=== PATIENT | female | born 1975 | race Caucasian/White ===

== ENCOUNTER 2020-07-26 14:07 | Emergency (ER) | payer MEDICAID, SELFPAY ==
--- NOTE | 2020-07-26 14:27 | PC.NURSE ---
Pt arrived to unit from waiting room, affect anxcious, cooperative w/ changeover. During changeover, several pills were found in purse by Officer Cyril- per pt, medications are xanax and oxycodone. Pt aware that per security, medicatioons must be destroyed as they did not arrive in precription bottle or with any other formal identifier. Pt aware, no concerns verbalized.
[2020-07-26 14:31] VITALS: BP 159/89; PULSE 86; RESP 18; TEMP 36.9; O2SAT 97
[2020-07-26 14:45] VITALS: BMI 44.2
[2020-07-26 14:59] LABS: UPreg QC Valid YES; Urine Pregnancy NEGATIVE (NEGATIVE)
--- NOTE | 2020-07-26 15:15 | ED_ITS ---
HPI - Psych General Chief Complaint: Psychiatric Symptoms <PHAM Foreman Last Filed: 07/26/20 21:08> Stated Complaint: CRISIS <PHAM Foreman Last Filed: 07/26/20 21:08> Time Seen by Provider: 07/26/20 18:07 <PHAM Foreman Last Filed: 07/26/20 21:08> Source: patient <PHAM Foreman Last Filed: 07/26/20 21:08> Mode of arrival: ambulatory <PHAM Foreman Last Filed: 07/26/20 21:08> Limitations: no limitations <PHAM Foreman Last Filed: 07/26/20 21:08> History of Present Illness HPI Narrative: Patient presents to the ED for depression anxiety. Patient states he feels overwhelmed at home and does not have support. Patient states she is a single mother with autistic child. Patient also states she recently lost her car and cannot afford money to buy new 1. patient denies any suicidal homicidal ideation. <PHAM Foreman Last Filed: 07/26/20 21:08> Related Data Home Medications: Home Medications Medication Instructions Recorded Confirmed alprazolam 2 mg PO DAILY PRN 07/26/20 07/26/20 cyclobenzaprine 10 mg PO TID PRN 07/26/20 07/26/20 fluticasone propion-salmeterol 1 inh INHALATION BID 07/26/20 07/26/20 [Wixela Inhub] hydrochlorothiazide 25 mg PO DAILY 07/26/20 07/26/20 montelukast 10 mg PO DAILY 07/26/20 07/26/20 norethindrone (contraceptive) 0.35 mg PO DAILY 07/26/20 07/26/20 omeprazole 20 mg PO BID 07/26/20 07/26/20 oxycodone 5 mg PO Q4H PRN 07/26/20 07/26/20 sumatriptan succinate 50 mg PO DAILY PRN 07/26/20 07/26/20 vortioxetine [Trintellix] 20 mg PO DAILY 07/26/20 07/26/20 <PHAM Foreman Last Filed: 07/26/20 21:08> Allergies/Adverse Reactions: Allergies Allergy/AdvReac Type Severity Reaction Status Date / Time amoxicillin [AMOXICILLIN] Allergy Mild RASH Unverified 06/09/20 16:22 latex [LATEX] Allergy Mild RASH Unverified 06/09/20 16:22 Penicillins [PENICILLINS] Allergy Mild RASH Unverified 06/09/20 16:22 amox Allergy Unknown SOB/rash Uncoded 05/20/12 00:00 LATEX Allergy Unknown rash Uncoded 05/20/12 00:00 PCN Allergy Unknown SOB/rash Uncoded 05/20/12 00:00 <PHAM Foreman - Last Filed: 07/26/20 21:08> Review of Systems Review of Systems: Yes all other systems are reviewed and are negative <PHAM Foreman Last Filed: 07/26/20 21:08> Constitutional: Constitutional: Reports as per HPI and Reports no additional constitutional complaints <PHAM Foreman Last Filed: 07/26/20 21:08> Eyes: Eyes: Reports as per HPI and Reports no additional eye complaints <PHAM Foreman Last Filed: 07/26/20 21:08> ENT: Reports system reviewed and no additional complaints, except as documented and Reports as per HPI <PHAM Foreman Last Filed: 07/26/20 21:08> Cardiovascular: Cardiovascular: Reports as per HPI and Reports no additional cardiovascular complaints <PHAM Foreman Last Filed: 07/26/20 21:08> Respiratory: Respiratory: Reports as per HPI and Reports no additional respiratory complaints <PHAM Foreman Last Filed: 07/26/20 21:08> Gastrointestinal: Gastrointestinal: Reports as per HPI and Reports no additional gastrointestinal complaints <PHAM Foreman Last Filed: 07/26/20 21:08> Musculoskeletal: Musculoskeletal: Reports no additional musculoskeletal complaints and Reports as per HPI <PHAM Foreman Last Filed: 07/26/20 21:08> Neurologic: Reports system reviewed and no additional complaints, except as documented and Reports as per HPI <PHAM Foreman Last Filed: 07/26/20 21:08> Psychiatric: Psychiatric: Reports no additional psychiatric complaints, Reports as per HPI, Reports anxiety and Reports depression <PHAM Foreman Last Filed: 07/26/20 21:08> FORMERLY [facility], [facility] Past Medical History Medical History: Medical History (Updated 07/26/20 @ 19:14 by Jasiel Adames MD) Asthma Colitis Crohn disease Fibromyalgia HTN (hypertension) <PHAM Foreman - Last Filed: 07/26/20 21:08> Surgical History: Surgical History (Updated 07/26/20 @ 14:52 by Vicki Mccloud) History of cholecystectomy LAP-BAND surgery status Previous section <PHAM Foreman - Last Filed: 07/26/20 21:08> Social History Social History: Social History Smoking Status: Never smoker Use of substances other than those prescribed or required for medical reasons: No Advance Directives: No Advance Directives Information Provided: No <PHAM Foreman Last Filed: 07/26/20 21:08> Physical Exam Vital Signs: Vital Signs: Vital Signs Temp Pulse Resp BP Pulse Ox 07/26/20 14:31 98.4 F 86 18 159/89 H 97 Body Mass Index 44.2 <PHAM Foreman - Last Filed: 07/26/20 21:08> Vital Signs: Vital Signs Temp Pulse Resp BP Pulse Ox 07/26/20 14:31 98.4 F 86 18 159/89 H 97 Body Mass Index 44.2 <Jasiel Adames MD - Last Filed: 07/26/20 19:15> Const: General: cooperative, healthy appearing, comfortable, no acute distress, well developed, alert and awake <PHAM Foreman Last Filed: 07/26/20 21:08> Orientation/consciousness: oriented to person, oriented to place, oriented to t herminia and patient oriented x3 <PHAM Foreman Last Filed: 07/26/20 21:08> HENMT: Head: Yes normal to inspection and Yes No palpable skull fracture present <PHAM Foreman Last Filed: 07/26/20 21:08> Eyes: General: appearance normal, both eyes and all related structures <PHAM Foreman Last Filed: 07/26/20 21:08> Neck: Neck: Yes normal visual inspection and Yes full ROM <PHAM Foreman Last Filed: 07/26/20 21:08> Chest: Chest palpation & inspection: normal inspection of the chest, normal palpation of entire chest wall and no localized rib tenderness <Cruzito Kirk, PA Filed: 07/26/20 21:08> Resp: Effort & Inspection: normal respiratory effort and able to speak in complete sentences <Cruzito Kirk, PA Filed: 07/26/20 21:08> Cardio: Jugular venous distension: no JVD <Cruzito Kirk, PA Filed: 07/26/20 21:08> Heart sounds: S1 normal heart sound present and S2 normal heart sound present <Cruzito Kirk, PA Filed: 07/26/20 21:08> GI: Inspection: Yes normal to inspection and No abdominal wall ecchymosis <Cruzito Kirk, PA Filed: 07/26/20 21:08> Palpation (GI): Soft to palpation, not firm, nontender, no guarding and not rigid <Cruzito Kirk, PA Filed: 07/26/20 21:08> : General: No CVA tenderness and Yes no CVA tenderness <Cruzito Kirk, PA Filed: 07/26/20 21:08> Back/Spine/Pelvis: Back: no CVA tenderness, No CVA tenderness and No back tenderness <Cruzito Kirk, PA Filed: 07/26/20 21:08> Skin: General skin exam: no rashes or lesions noted <Cruzito Kirk, PHAM Filed: 07/26/20 21:08> Neuro: General: oriented to person, oriented to place, oriented to time, patient oriented x3, gait normal and CN's II-XI intact bilaterally <Cruzito Kirk, PA Filed: 07/26/20 21:08> Cranial nerves: Yes CN's II-XII intact bilaterally <Cruzito Kirk, PA Filed: 07/26/20 21:08> Extrem: General: Yes normal to inspection and Yes full ROM <PHAM Foreman Filed: 07/26/20 21:08> Psych: Appearance: grossly normal, well kempt and not disheveled <PHAM Foreman Last Filed: 07/26/20 21:08> Speech and movement: Normal speech and movement present <PHAM Foreman - Last Filed: 07/26/20 21:08> Affect: normal affect <PHAM Foreman - Last Filed: 07/26/20 21:08> Thought process: Normal thought process present <PHAM Foreman Last Filed: 07/26/20 21:08> Thought content: Normal thought content present <PHAM Foreman - Last Filed: 07/26/20 21:08> Course Course Course Narrative: Patient is depressed and anxious. Patient denies any suicidal or homicide ideation will put. BHN in consult <PHAM Foreman - Last Filed: 07/26/20 21:08> Reevaluation(s) Reevaluation #1: patient seen by therapist will be discharging patient home patient has support at home and at this time patient feels better was overwhelmed when she came <Jasiel Adames MD - Last Filed: 07/26/20 19:15> Time: 19:15 <Jasiel Adames MD - Last Filed: 07/26/20 19:15> MDM - Psych Restraints Face to Face Assessment: Face to Face Assessment: Current Situation: After assessment of the patient, a review of the pertinent medical record and a discussion with nursing staff, I feel the patient requires a restrain i ntervention. Reaction To: [] Medical Condition: [] Behavioral State: [] Continued Need: [] <PHAM Foreman - Last Filed: 07/26/20 21:08> Lab Data Result diagrams: : 07/26/20 15:58 07/26/20 15:58 <PHAM Foreman - Last Filed: 07/26/20 21:08> Labs: Lab Results 07/26/20 07/26/20 07/26/20 Range/Units 14:35 14:35 15:58 WBC 10.2 (4.8-10.8) X10*3/uL RBC 4.78 (4.20-5.50) X10*6/uL Hgb 10.6 L (12.0-16.0) g/dl Hct 34.9 L (37-47) % MCV 73.0 L (80-98) fL MCH 22.2 L (27.0-33.0) pg MCHC 30.4 L (31.0-35.0) g/dl RDW 14.8 (11.0-16.0) % Plt Count 440 H (160-400) X10*3/uL MPV 10.1 (9.4-12.3) fL Immature Gran % (Auto) 0.5 H (0.0-0.4) % Neut % (Auto) 55.3 (45-73) % Lymph % (Auto) 33.3 (20-40) % [place] % (Auto) 7.8 (2-11) % Eos % (Auto) 2.6 (0-4) % Baso % (Auto) 0.5 (0-2) % Lymph # (Auto) 3.4 (1.2-4.9) X10*3/uL [place] # (Auto) 0.8 (0.1-1.2) X10*3/uL Eos # (Auto) 0.3 (0.0-0.4) X10*3/uL Baso # (Auto) 0.1 (0.0-0.2) X10*3/uL Abs Immat Gran (auto) 0.05 H (0.00-0.03) X10*3/uL Absolute Neuts (auto) 5.7 (2.0-8.3) X10*3/uL Absolute Nucleated RBC 0.000 (0.0-0.012) X10*3/uL Nucleated RBC % (auto) 0.0 (0.0-0.2) /100WBC Sodium (135-145) mmol/L Potassium (3.3-5.1) mmol/l Chloride (96-108) mmol/L Carbon Dioxide (22-29) mmol/L Anion Gap (12-20) Urine Test NEGATIVE (NEGATIVE) Salicylates (15-30) mg/dL Urine Opiates Screen POSITIVE H (Not Detect) Acetaminophen (<30) mcg/mL Ur Barbiturates Screen Not Detected (Not Detect) Ur Phencyclidine Scrn Not Detected (Not Detect) Ur Amphetamines Screen Not Detected (Not Detect) U Benzodiazepines Scrn POSITIVE H (Not Detect) Urine Cocaine Screen Not Detected (Not Detect) U Marijuana (THC) Screen Not Detected (Not Detect) Ethyl Alcohol mg/dL 07/26/20 07/26/20 Range/Units 15:58 15:58 WBC (4.8-10.8) X10*3/uL RBC (4.20-5.50) X10*6/uL Hgb (12.0-16.0) g/dl Hct (37-47) % MCV (80-98) fL MCH (27.0-33.0) pg MCHC (31.0-35.0) g/dl RDW (11.0-16.0) % Plt Count (160-400) X10*3/uL MPV (9.4-12.3) fL Immature Gran % (Auto) (0.0-0.4) % Neut % (Auto) (45-73) % Lymph % (Auto) (20-40) % [place] % (Auto) (2-11) % Eos % (Auto) (0-4) % Baso % (Auto) (0-2) % Lymph # (Auto) (1.2-4.9) X10*3/uL [place] # (Auto) (0.1-1.2) X10*3/uL Eos # (Auto) (0.0-0.4) X10*3/uL Baso # (Auto) (0.0-0.2) X10*3/uL Abs Immat Gran (auto) (0.00-0.03) X10*3/uL Absolute Neuts (auto) (2.0-8.3) X10*3/uL Absolute Nucleated RBC (0.0-0.012) X10*3/uL Nucleated RBC % (auto) (0.0-0.2) /100WBC Sodium 140 (135-145) mmol/L Potassium 3.3 (3.3-5.1) mmol/l Chloride 100 (96-108) mmol/L Carbon Dioxide 32 H (22-29) mmol/L Anion Gap 11 L (12-20) Urine Test (NEGATIVE) Salicylates < 5.0 L (15-30) mg/dL Urine Opiates Screen (Not Detect) Acetaminophen 4 (<30) mcg/mL Ur Barbiturates Screen (Not Detect) Ur Phencyclidine Scrn (Not Detect) Ur Amphetamines Screen (Not Detect) U Benzodiazepines Scrn (Not Detect) Urine Cocaine Screen (Not Detect) U Marijuana (THC) Screen (Not Detect) Ethyl Alcohol < 10 mg/dL <PHAM Foreman - Last Filed: 07/26/20 21:08> Lab Results 07/26/20 07/26/20 07/26/20 Range/Units 14:35 14:35 15:58 WBC 10.2 (4.8-10.8) X10*3/uL RBC 4.78 (4.20-5.50) X10*6/uL Hgb 10.6 L (12.0-16.0) g/dl Hct 34.9 L (37-47) % MCV 73.0 L (80-98) fL MCH 22.2 L (27.0-33.0) pg MCHC 30.4 L (31.0-35.0) g/dl RDW 14.8 (11.0-16.0) % Plt Count 440 H (160-400) X10*3/uL MPV 10.1 (9.4-12.3) fL Immature Gran % (Auto) 0.5 H (0.0-0.4) % Neut % (Auto) 55.3 (45-73) % Lymph % (Auto) 33.3 (20-40) % [place] % (Auto) 7.8 (2-11) % Eos % (Auto) 2.6 (0-4) % Baso % (Auto) 0.5 (0-2) % Lymph # (Auto) 3.4 (1.2-4.9) X10*3/uL [place] # (Auto) 0.8 (0.1-1.2) X10*3/uL Eos # (Auto) 0.3 (0.0-0.4) X10*3/uL Baso # (Auto) 0.1 (0.0-0.2) X10*3/uL Abs Immat Gran (auto) 0.05 H (0.00-0.03) X10*3/uL Absolute Neuts (auto) 5.7 (2.0-8.3) X10*3/uL Absolute Nucleated RBC 0.000 (0.0-0.012) X10*3/uL Nucleated RBC % (auto) 0.0 (0.0-0.2) /100WBC Sodium (135-145) mmol/L Potassium (3.3-5.1) mmol/l Chloride (96-108) mmol/L Carbon Dioxide (22-29) mmol/L Anion Gap (12-20) Urine Test NEGATIVE (NEGATIVE) Salicylates (15-30) mg/dL Urine Opiates Screen POSITIVE H (Not Detect) Acetaminophen (<30) mcg/mL Ur Barbiturates Screen Not Detected (Not Detect) Ur Phencyclidine Scrn Not Detected (Not Detect) Ur Amphetamines Screen Not Detected (Not Detect) U Benzodiazepines Scrn POSITIVE H (Not Detect) Urine Cocaine Screen Not Detected (Not Detect) U Marijuana (THC) Screen Not Detected (Not Detect) Ethyl Alcohol mg/dL 07/26/20 07/26/20 Range/Units 15:58 15:58 WBC (4.8-10.8) X10*3/uL RBC (4.20-5.50) X10*6/uL Hgb (12.0-16.0) g/dl Hct (37-47) % MCV (80-98) fL MCH (27.0-33.0) pg MCHC (31.0-35.0) g/dl RDW (11.0-16.0) % Plt Count (160-400) X10*3/uL MPV (9.4-12.3) fL Immature Gran % (Auto) (0.0-0.4) % Neut % (Auto) (45-73) % Lymph % (Auto) (20-40) % [place] % (Auto) (2-11) % Eos % (Auto) (0-4) % Baso % (Auto) (0-2) % Lymph # (Auto) (1.2-4.9) X10*3/uL [place] # (Auto) (0.1-1.2) X10*3/uL Eos # (Auto) (0.0-0.4) X10*3/uL Baso # (Auto) (0.0-0.2) X10*3/uL Abs Immat Gran (auto) (0.00-0.03) X10*3/uL Absolute Neuts (auto) (2.0-8.3) X10*3/uL Absolute Nucleated RBC (0.0-0.012) X10*3/uL Nucleated RBC % (auto) (0.0-0.2) /100WBC Sodium 140 (135-145) mmol/L Potassium 3.3 (3.3-5.1) mmol/l Chloride 100 (96-108) mmol/L Carbon Dioxide 32 H (22-29) mmol/L Anion Gap 11 L (12-20) Urine Test (NEGATIVE) Salicylates < 5.0 L (15-30) mg/dL Urine Opiates Screen (Not Detect) Acetaminophen 4 (<30) mcg/mL Ur Barbiturates Screen (Not Detect) Ur Phencyclidine Scrn (Not Detect) Ur Amphetamines Screen (Not Detect) U Benzodiazepines Scrn (Not Detect) Urine Cocaine Screen (Not Detect) U Marijuana (THC) Screen (Not Detect) Ethyl Alcohol < 10 mg/dL <Jasiel Adames MD - Last Filed: 07/26/20 19:15> Discharge Plan Discharge Clinical Impression: Depression <PHAM Foreman - Last Filed: 07/26/20 21:08> Patient Disposition: Home, Self-Care <PHAM Foreman - Last Filed: 07/26/20 21:08> Instructions: Depression (ED) <PHAM Foreman - Last Filed: 07/26/20 21:08> Additional Instructions: continue your medication and follow up with your therapist <PHAM Foreman - Last Filed: 07/26/20 21:08> Prescriptions: No Action cyclobenzaprine 10 mg Tablet 10 mg PO TID PRN (Reason: Pain, Moderate) RF: 0 oxycodone 5 mg Capsule 5 mg PO Q4H PRN (Reason: Pain, Severe) RF: 0 montelukast 10 mg Tablet 10 mg PO DAILY RF: 0 alprazolam 2 mg Tablet 2 mg PO DAILY PRN (Reason: Anxiety) RF: 0 Trintellix 20 mg Tablet 20 mg PO DAILY RF: 0 fluticasone propion-salmeterol [Wixela Inhub] 250-50 mcg/dose Blister With Device 1 inh INHALATION BID RF: 0 sumatriptan succinate 50 mg Tablet 50 mg PO DAILY PRN (Reason: Migraine Headache) RF: 0 omeprazole 20 mg Capsule,Delayed Release(Dr/Ec) 20 mg PO BID RF: 0 hydrochlorothiazide 25 mg Tablet 25 mg PO DAILY RF: 0 norethindrone (contraceptive) 0.35 mg Tablet 0.35 mg PO DAILY RF: 0 <PHAM Foreman - Last Filed: 07/26/20 21:08> Interventions: ED Discharge Assessment Last Done: 07/26/20 19:14 <PHAM Foreman - Last Filed: 07/26/20 21:08> Discharge Date/Time: 07/26/20 19:37 <PHAM Foreman - Last Filed: 07/26/20 21:08>
[2020-07-26 15:29] LABS: Amphetamine Screen Urine Not Detected (Not Detect); Barbiturates, Urine Not Detected (Not Detect); Benzodiazepines Screen Urine POSITIVE (Not Detect); Cannabinoid Screen Urine Not Detected (Not Detect); Cocaine Screen Urine Not Detected (Not Detect); Opiate Screen Urine POSITIVE (Not Detect); Phencyclidine Screen Urine Not Detected (Not Detect)
[2020-07-26 16:07] LABS: MANUAL DIFF FLAG NO
[2020-07-26 16:08] LABS: Basophils Absolute Auto 0.1 X10*3/uL (0.0-0.2); Basophils Percent Auto 0.5 % (0-2); Eosinophils Absolute Auto 0.3 X10*3/uL (0.0-0.4); Eosinophils Percent Auto 2.6 % (0-4); Hematocrit 34.9 % (37-47); Hemoglobin 10.6 g/dl (12.0-16.0); Imm Gran Abs Auto 0.05 X10*3/uL (0.00-0.03); Imm Gran Pct Auto 0.5 % (0.0-0.4); Lymphocytes Absolute Auto 3.4 X10*3/uL (1.2-4.9); Lymphocytes Percent Auto 33.3 % (20-40); Mean Corpuscular HGB Conc 30.4 g/dl (31.0-35.0); Mean Corpuscular Hemoglobin 22.2 pg (27.0-33.0); Mean Platelet Volume 10.1 fL (9.4-12.3); Monocytes Absolute Auto 0.8 X10*3/uL (0.1-1.2); Monocytes Percent Auto 7.8 % (2-11); Neutrophils Absolute Auto 5.7 X10*3/uL (2.0-8.3); Neutrophils Percent Auto 55.3 % (45-73); Platelet Count 440 X10*3/uL (160-400); Red Blood Count 4.78 X10*6/uL (4.20-5.50); Red Cell Distribution Width 14.8 % (11.0-16.0); White Blood Count 10.2 X10*3/uL (4.8-10.8)
[2020-07-26 16:35] LABS: Ethanol < 10 mg/dL
[2020-07-26 16:38] LABS: Acetaminophen LAB 4 mcg/mL (<30); Salicylate < 5.0 mg/dL (15-30)
--- NOTE | 2020-07-26 16:47 | PC.NURSE ---
tyreln called and faxed
[2020-07-26 16:49] LABS: Anion Gap 11 (12-20); Carbon Dioxide 32 mmol/L (22-29); Chloride 100 mmol/L (96-108); Potassium 3.3 mmol/l (3.3-5.1); Sodium 140 mmol/L (135-145)
--- NOTE | 2020-07-26 18:38 | PC.NURSE ---
BHN in to evaluate. Pt requesting medication for anxiety n april aware- pharmacy called re: xanax , not available in the ED.
[2020-07-26] MEDS: ALPRAZolam 0.25 MG TABLET PO (19:10)
== END 2020-07-26 19:37 | disposition home or self-care (01) ==
PROVIDERS: Emergency Provider Internal Medicine; PCP Nurse Practitioner Adult Health
DX: F33.1 Major depressive disorder, recurrent, moderate (principal); I10 Essential (primary) hypertension; Z79.899 Other long term (current) drug therapy
CPT/HCPCS: 36415; 80051; 80307; 80320; 81025; 85025; 99284; G0480

== ENCOUNTER 2020-09-28 08:00 | Outpatient (RCR) | payer OTHER, SELFPAY ==
[2020-08-12 13:07] VITALS: BMI 40.3
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
--- NOTE | 2020-08-16 15:37 | P.PNPSP_ITS ---
Subjective Subjective Date of Service: 08/17/20 Reason For Visit: depression Interim History: I have just started to take it all in. Pt reports she is adjusting to telehealth and to PHP. Denies medication questions, SE, breakthrough s or need for changes today. Discussed coping with the holiday and having her son at home for five days without added assistance and how she will manage this. Discussed difficulties with telehealth process for herself and her son- attempting to connect with his therapist, mentor, educational providers and med provider to discuss consistent interventions she may implement at home to assist in keeping him moving forward and on track with effective treatment/educational planning. Medication Compliance: Yes Side effects from medications: No Attending Groups: Yes Review of Systems Psychiatric: Reports anxiety, Reports depression, Reports difficulty concentrating, Reports hopelessness and Reports irritability (at times,mostly when exhausted and not having support) Mental Status Exam Mental Status Exam Patient Orientation: Person, Place, Time and Situation Level of Consciousness: Awake, Appropriate and Alert Patient Behavior: Appropriate, Talkative, Cooperative and Anxious Mood Description: Depressed and Anxious Affect Description: Flat Patient Cognition Impaired: No Ability to Follow Directions: Excellent Speech Pattern: Clear, Appropriate, Spontaneous Speech and Soft-Spoken Memory Description: Intact Hallucinations: None Delusions: Not Present Thought Process: Intact and Rumination (at times, with worry) Thought Content: positive for Intact, positive for [place], positive for Circumstantial and positive for Goal Oriented Depressive Symptoms: Increased Anxiety, Diff. Making Decisions, Increased Irri tability, Loss of Int. in Activity, Hopelessness, Unhappiness, Increased Fatigue, Low Self Esteem and Loss of Energy Judgement: Good Diagnostics Vital Signs (24Hr): Body Mass Index 40.3 Assessment & Plan Assessment & Plan (1) Major depressive disorder, recurrent severe without psychotic features: Status: Acute Code(s): F33.2 - Major depressive disorder, recurrent severe without psychotic features Assessment and Plan: -Continue current regime -Continue PHP Plan of care -Education regarding maximum utilization of telehealth process for her and son's benefit during pandemic emergency. Certification I certify that partial hospital treatment is medically necessary due to the symptoms and problems resulting from the patient's mental illness and the failure to treat the patient at the partial hospital level of care would likely result in the patient requiring inpatient psychiatric care which could not be prevented at a less intensive level of care. Greater than 50% of the session was spent on counseling and/or coordination of care Discharge Plan Discharge Attending provider: Richard Lugo Medications: No Action cyclobenzaprine 10 mg Tablet 10 mg PO TID PRN (Reason: Muscle Spasm) RF: 0 oxycodone 5 mg Capsule 5 mg PO Q4H PRN (Reason: Pain, Severe) RF: 0 montelukast 10 mg Tablet 10 mg PO DAILY RF: 0 alprazolam 2 mg Tablet See Rx Instructions .ROUTE .COMPLEX PRN (Reason: Anxiety) RF: 0 fluticasone propion-salmeterol [Wixela Inhub] 250-50 mcg/dose Blister With Device 1 inh INHALATION BID RF: 0 sumatriptan succinate 50 mg Tablet 50 mg PO DAILY PRN (Reason: Migraine Headache) RF: 0 omeprazole 20 mg Capsule,Delayed Release(Dr/Ec) 20 mg PO BID RF: 0 hydrochlorothiazide 25 mg Tablet 25 mg PO DAILY RF: 0 norethindrone (contraceptive) 0.35 mg Tablet 0.35 mg PO DAILY RF: 0 fexofenadine [Vielka] 180 mg Tablet 180 mg PO DAILY RF: 0 pantoprazole 40 mg Tablet,Delayed Release (Dr/Ec) 40 mg PO BID RF: 0 buspirone [BuSpar] 10 mg Tablet 10 mg PO BID RF: 0 hydroxyzine HCl 25 mg Tablet 25 mg PO BID PRN (Reason: Anxiety) RF: 0 dextroamphetamine-amphetamine [Adderall XR] 25 mg Capsule,Extended Release 24hr 25 mg PO DAILY RF: 0 fluconazole [Diflucan] 150 mg Tablet 150 mg PO QWEEK RF: 0
--- NOTE | 2020-08-23 15:47 | HO.PHPPROGNO ---
Subjective Subjective Date of Service: 08/24/20 Reason For Visit: depression Interim History: Destiny reports a diffiuclt holiday. Her brother and his family have COVID, so the family was not able to be together-she and mother had conflict. She tried to make things normal pleasant however she argued with her mother which upset her. She did engage crisis and felt unsupported as they asked her about using medicine for her mood. Mother spoke with crisis as well. Pt was disappointed that more support was not offered. Pt reports insomnia. She called her OP med provider who referred her back to PHP. Discussed with pt why we prefer this to using a few providers while in PHP. Hx of Trazodone use which was ineffective. Discussed low dose Seroquel, risks and benefits Medication Compliance: Yes Side effects from medications: No Attending Groups: Yes Review of Systems Psychiatric: Reports abnormal sleep pattern, Reports anxiety, Reports depression, Reports irritability, Reports anhedonia, Reports mood swings and Reports panic attacks Mental Status Exam Mental Status Exam Patient Orientation: Person, Place, Time and Situation Level of Consciousness: Awake, Appropriate and Alert Patient Behavior: Appropriate, Talkative, Cooperative, Anxious and Fatigued Mood Description: Depressed Affect Description: Flat Patient Cognition Impaired: No Ability to Follow Directions: Good Speech Pattern: Clear, Appropriate and Spontaneous Speech Memory Description: Intact Hallucinations: None Delusions: Not Present Thought Process: Intact Thought Content: positive for Intact and positive for Circumstantial Depressive Symptoms: Increased Anxiety, Insomnia, Diff. Making Decisions, Increased Irritability, Difficulty Sleeping, Crying Spells, Loss of Int. in Activity, Feelings of Worthlessness, Hopelessness, Isolating-Friends/Family, Feelings of Guilt, Unhappiness, Increased Fatigue, Thoughts of /Suicide (passive, without plan or intent today), Low Self Esteem, Loss of Energy and Difficulty Concentrating Judgement: Good Diagnostics Vital Signs (24Hr): Body Mass Index 40.3 Assessment & Plan Assessment & Plan (1) Major depressive disorder, recurrent severe without psychotic features: Status: Acute Code(s): F33.2 - Major depressive disorder, recurrent severe without psychotic features Assessment and Plan: - Insomnia, hx of Trazodone inefficacy. Plan: Seroquel 25-50 mg HS prn insomnia -Continue PHP plan of care. Certification I certify that partial hospital treatment is medically necessary due to the symptoms and problems resulting from the patient's mental illness and the failure to treat the patient at the partial hospital level of care would likely result in the patient requiring inpatient psychiatric care which could not be prevented at a less intensive level of care. Greater than 50% of the session was spent on counseling and/or coordination of care Discharge Plan Discharge Attending provider: Richard Lugo Medications: New quetiapine [Seroquel] 25 mg tablet 50 mg PO BEDTIME MDD take 1-2 tabs at bedtime prn PRN (Reason: insomnia) Qty: 14 RF: 0 No Action cyclobenzaprine 10 mg Tablet 10 mg PO TID PRN (Reason: Muscle Spasm) RF: 0 oxycodone 5 mg Capsule 5 mg PO Q4H PRN (Reason: Pain, Severe) RF: 0 montelukast 10 mg Tablet 10 mg PO DAILY RF: 0 alprazolam 2 mg Tablet See Rx Instructions .ROUTE .COMPLEX PRN (Reason: Anxiety) RF: 0 fluticasone propion-salmeterol [Wixela Inhub] 250-50 mcg/dose Blister With Device 1 inh INHALATION BID RF: 0 sumatriptan succinate 50 mg Tablet 50 mg PO DAILY PRN (Reason: Migraine Headache) RF: 0 omeprazole 20 mg Capsule,Delayed Release(Dr/Ec) 20 mg PO BID RF: 0 hydrochlorothiazide 25 mg Tablet 25 mg PO DAILY RF: 0 norethindrone (contraceptive) 0.35 mg Tablet 0.35 mg PO DAILY RF: 0 fexofenadine [Vielka] 180 mg Tablet 180 mg PO DAILY RF: 0 pantoprazole 40 mg Tablet,Delayed Release (Dr/Ec) 40 mg PO BID RF: 0 buspirone [BuSpar] 10 mg Tablet 10 mg PO BID RF: 0 hydroxyzine HCl 25 mg Tablet 25 mg PO BID PRN (Reason: Anxiety) RF: 0 dextroamphetamine-amphetamine [Adderall XR] 25 mg Capsule,Extended Release 24hr 25 mg PO DAILY RF: 0 fluconazole [Diflucan] 150 mg Tablet 150 mg PO QWEEK RF: 0
--- NOTE | 2020-08-30 12:07 | HO.PHPPROGNO ---
Subjective Subjective Date of Service: 08/30/20 Reason For Visit: depression Interim History: Reports Seroquel efficacy in sleep assist. Has needed two tablets 1 or 2 times, however 1 tab is effective she reports. Talked with Luci HAYWOOD. She states she is interested and will follow through on this referral. Discussed distress of having to manage new disability coverage through employer. She has been making telephone calls all day to no avail. How can I get better if I have to deal with this all of the time? However, she does report improved sleep quality which she finds helpful in managing mood/situational stress. Medication Compliance: Yes Side effects from medications: No Attending Groups: Yes Review of Systems Reports confusion Psychiatric: Reports anxiety, Reports confusion, Reports depression, Reports difficulty concentrating, Reports hopelessness, Reports irritability, Reports anhedonia and Reports panic attacks Mental Status Exam Mental Status Exam Patient Orientation: Person, Place, Time and Situation Level of Consciousness: Awake, Appropriate and Alert Patient Behavior: Appropriate, Talkative, Cooperative, Anxious, Fearful and Fatigued Mood Description: Anxious, Nervous and Apprehensive Affect Description: Constricted Patient Cognition Impaired: No Ability to Follow Directions: Excellent Speech Pattern: Clear Memory Description: Intact Hallucinations: None Delusions: Not Present Thought Process: Intact Thought Content: positive for Intact Depressive Symptoms: Increased Anxiety, Increased Irritability, Crying Spells, Loss of Int. in Activity, Feelings of Worthlessness, Hopelessness, Feelings of Guilt, Unhappiness, Increased Fatigue, Low Self Esteem, Loss of Energy and Difficulty Concentrating Judgement: Good Diagnostics Vital Signs (24Hr): Body Mass Index 40.3 Assessment & Plan Assessment & Plan (1) Major depressive disorder, recurrent severe without psychotic features: Status: Acute Code(s): F33.2 - Major depressive disorder, recurrent severe without psychotic features Assessment and Plan: -Continue current medication plan and PHP plan of care. Certification I certify that partial hospital treatment is medically necessary due to the symptoms and problems resulting from the patient's mental illness and the failure to treat the patient at the partial hospital level of care would likely result in the patient requiring inpatient psychiatric care which could not be prevented at a less intensive level of care. Greater than 50% of the session was spent on counseling and/or coordination of care Discharge Plan Discharge Attending provider: Richard Lugo Medications: Continued quetiapine [Seroquel] 25 mg tablet 50 mg PO BEDTIME MDD take 1-2 tabs at bedtime prn PRN (Reason: insomnia) Qty: 14 RF: 1 No Action cyclobenzaprine 10 mg Tablet 10 mg PO TID PRN (Reason: Muscle Spasm) RF: 0 oxycodone 5 mg Capsule 5 mg PO Q4H PRN (Reason: Pain, Severe) RF: 0 montelukast 10 mg Tablet 10 mg PO DAILY RF: 0 alprazolam 2 mg Tablet See Rx Instructions .ROUTE .COMPLEX PRN (Reason: Anxiety) RF: 0 fluticasone propion-salmeterol [Wixela Inhub] 250-50 mcg/dose Blister With Device 1 inh INHALATION BID RF: 0 sumatriptan succinate 50 mg Tablet 50 mg PO DAILY PRN (Reason: Migraine Headache) RF: 0 omeprazole 20 mg Capsule,Delayed Release(Dr/Ec) 20 mg PO BID RF: 0 hydrochlorothiazide 25 mg Tablet 25 mg PO DAILY RF: 0 norethindrone (contraceptive) 0.35 mg Tablet 0.35 mg PO DAILY RF: 0 fexofenadine [Vielka] 180 mg Tablet 180 mg PO DAILY RF: 0 pantoprazole 40 mg Tablet,Delayed Release (Dr/Ec) 40 mg PO BID RF: 0 buspirone [BuSpar] 10 mg Tablet 10 mg PO BID RF: 0 hydroxyzine HCl 25 mg Tablet 25 mg PO BID PRN (Reason: Anxiety) RF: 0 dextroamphetamine-amphetamine [Adderall XR] 25 mg Capsule,Extended Release 24hr 25 mg PO DAILY RF: 0 fluconazole [Diflucan] 150 mg Tablet 150 mg PO QWEEK RF: 0
--- NOTE | 2020-09-01 10:52 | PC.NURSE ---
Spoke with pt after she reported in first group she had researched ways to suicide yesterday after more issues happened with her car. She reported being safe at this point and she was able to call the suicide hotline yesterday and talk with a friend. After she slept, she felt better. She agreed to call crisis and reach out to staff if the feeling increased again.
--- NOTE | 2020-09-02 14:07 | PC.NURSE ---
Phoned client to check in about needs for discharge and scheduling. She requests a referral for the DBT group at [facility]. I will make that referral next week when she is closer to discharge.
--- NOTE | 2020-09-06 13:55 | HO.PHPPROGNO ---
Subjective Subjective Date of Service: 09/06/20 Reason For Visit: depression Interim History: Patient reporting she had a challenging weekend. [place] overwhelmed, suicidal ideation, feeling people would be better off without her. Son is now home for remote learning due to Covid issues at school. Denies suicidal ideation today, does not feel as hopeless as she felt over the weekend. Able to articulate frustration with not getting better as she feels she recovered much more quickly before. Discussed how current world events may be contributing to/impacting recovery process. Discussed access crisis services, including the ED when suicidal ideation progressed as it had over the weekend. Reports that seroquel is very effective with sleep, but she stopped taking it for a day or two as she heard someone in group report that it made them eat excessively and gain weight. Discussed patients concerns along with benefits to taking medication, etc. Medication Compliance: Yes Side effects from medications: No Attending Groups: Yes Review of Systems Constitutional: Reports lethargy Psychiatric: Reports abnormal sleep pattern, Reports anxiety, Reports depression, Reports difficulty concentrating, Reports anhedonia and Denies suicidal ideation Mental Status Exam Mental Status Exam Patient Appearance: Well Grooomed Patient Orientation: Person, Place, Time and Situation Level of Consciousness: Awake, Appropriate and Alert Patient Behavior: Appropriate Mood Description: Flat Affect Description: Flat Ability to Follow Directions: Excellent Speech Pattern: Clear Thought Process: Rumination Thought Content: positive for Intact Depressive Symptoms: Increased Anxiety, Difficulty Sleeping, Feelings of Guilt and Thoughts of /Suicide Judgement: Good Diagnostics Vital Signs (24Hr): Body Mass Index 40.3 Assessment & Plan Assessment & Plan (1) Major depressive disorder, recurrent severe without psychotic features: Status: Acute Code(s): F33.2 - Major depressive disorder, recurrent severe without psychotic features Assessment and Plan: No change to medications Encouraged to seek out crisis regarding SI--patient verbalizing that she is no longer having thoughts of not being alive, but still feeling stuck--motivated to move forward Certification I certify that partial hospital treatment is medically necessary due to the symptoms and problems resulting from the patient's mental illness and the failure to treat the patient at the partial hospital level of care would likely result in the patient requiring inpatient psychiatric care which could not be prevented at a less intensive level of care. Greater than 50% of the session was spent on counseling and/or coordination of care Discharge Plan Discharge Attending provider: Richard Lugo Medications: Continued quetiapine [Seroquel] 25 mg tablet 50 mg PO BEDTIME MDD take 1-2 tabs at bedtime prn PRN (Reason: insomnia) Qty: 14 RF: 1 No Action cyclobenzaprine 10 mg Tablet 10 mg PO TID PRN (Reason: Muscle Spasm) RF: 0 oxycodone 5 mg Capsule 5 mg PO Q4H PRN (Reason: Pain, Severe) RF: 0 montelukast 10 mg Tablet 10 mg PO DAILY RF: 0 alprazolam 2 mg Tablet See Rx Instructions .ROUTE .COMPLEX PRN (Reason: Anxiety) RF: 0 fluticasone propion-salmeterol [Wixela Inhub] 250-50 mcg/dose Blister With Device 1 inh INHALATION BID RF: 0 sumatriptan succinate 50 mg Tablet 50 mg PO DAILY PRN (Reason: Migraine Headache) RF: 0 omeprazole 20 mg Capsule,Delayed Release(Dr/Ec) 20 mg PO BID RF: 0 hydrochlorothiazide 25 mg Tablet 25 mg PO DAILY RF: 0 norethindrone (contraceptive) 0.35 mg Tablet 0.35 mg PO DAILY RF: 0 fexofenadine [Vielka] 180 mg Tablet 180 mg PO DAILY RF: 0 pantoprazole 40 mg Tablet,Delayed Release (Dr/Ec) 40 mg PO BID RF: 0 buspirone [BuSpar] 10 mg Tablet 10 mg PO BID RF: 0 hydroxyzine HCl 25 mg Tablet 25 mg PO BID PRN (Reason: Anxiety) RF: 0 dextroamphetamine-amphetamine [Adderall XR] 25 mg Capsule,Extended Release 24hr 25 mg PO DAILY RF: 0 fluconazole [Diflucan] 150 mg Tablet 150 mg PO QWEEK RF: 0 Telehealth Telehealth Location of provider rendering services: practice address Location of patient: address on file Patient Identification confirmed using: Name, : Yes Telehealth method: video Patient verbally consented to treatment: Yes Patient verbally consented to billing insurance company: Yes Time spent with patient (mins): 20
--- NOTE | 2020-09-12 14:32 | PC.NURSE ---
I spoke with the client today about after care plans She requests a referral for DBT. I then phoned N and spoke with Ro to set up an intake for DBT. She took the information and they will be calling the client within seven days with an appointment time.
--- NOTE | 2020-09-13 12:32 | PC.NURSE ---
Spoke with pt regarding a report of concern from the medical provider. Portia Cabrera was present as well. Pt reported struggling with increased depression and passive suicidal ideation (not wanting to be here anymore). She denied any plan or intent to hurt herself at this time. Provided her with national suicide hotline number, crisis text line, and [facility] and [facility] crisis number. She agreed to call if needed. Placed pt on alert at [facility] and [facility] which she also agreed to. Discussed potential [facility] services that she and her son may be eligible for.
--- NOTE | 2020-09-13 13:40 | P.PNPSP_ITS ---
Subjective Subjective Date of Service: 09/13/20 Reason For Visit: depression Interim History: Patient withdrawn, reporting increasing depressive sx and SI and overall feeling overwhelmed. Denies any plan or intent at time of visit, but patient acknowledges feeling overall worse than one week ago when seen by this commercial loan underwriter. Reports she is having difficulty falling asleep--going to bed around 10pm, but unable to sleep until about 1:30-2am. States she has only been taking 25mg of seroquel at bedtime, has not been taking two Medication Compliance: Yes Side effects from medications: No Attending Groups: Yes Review of Systems Constitutional: Reports difficulty sleeping and Reports lethargy Psychiatric: Reports anxiety, Reports difficulty concentrating, Reports hopelessness, Reports anhedonia and Reports suicidal ideation (denies any active plan or intent) Mental Status Exam Mental Status Exam Patient Appearance: Well Grooomed Level of Consciousness: Awake and Alert Patient Behavior: Passive Mood Description: Withdrawn and Depressed Affect Description: Withdrawn and Depressed Ability to Follow Directions: Excellent Speech Pattern: Clear and Soft-Spoken Hallucinations: None Delusions: Not Present Thought Process: Rumination Thought Content: positive for Intact Depressive Symptoms: Increased Anxiety, Difficulty Sleeping, Feelings of Worthlessness, Hopelessness and Thoughts of /Suicide Judgement: Good Diagnostics Vital Signs (24Hr): Body Mass Index 40.3 Assessment & Plan Assessment & Plan (1) Major depressive disorder, recurrent severe without psychotic features: Status: Acute Code(s): F33.2 - Major depressive disorder, recurrent severe without psychotic features Assessment and Plan: Discussed case with patient care production supervisor trainee--she will follow up with patient regarding crisis safety plan Advised patient to take 2 tabs of serouquel at bedtime to assist with sleep Certification I certify that partial hospital treatment is medically necessary due to the symptoms and problems resulting from the patient's mental illness and the failure to treat the patient at the partial hospital level of care would likely result in the patient requiring inpatient psychiatric care which could not be prevented at a less intensive level of care. Greater than 50% of the session was spent on counseling and/or coordination of care Discharge Plan Discharge Attending provider: Richard Lugo Medications: Continued quetiapine [Seroquel] 25 mg tablet 50 mg PO BEDTIME MDD take 1-2 tabs at bedtime prn PRN (Reason: insomnia) Qty: 14 RF: 1 No Action cyclobenzaprine 10 mg Tablet 10 mg PO TID PRN (Reason: Muscle Spasm) RF: 0 oxycodone 5 mg Capsule 5 mg PO Q4H PRN (Reason: Pain, Severe) RF: 0 montelukast 10 mg Tablet 10 mg PO DAILY RF: 0 alprazolam 2 mg Tablet See Rx Instructions .ROUTE .COMPLEX PRN (Reason: Anxiety) RF: 0 fluticasone propion-salmeterol [Wixela Inhub] 250-50 mcg/dose Blister With Device 1 inh INHALATION BID RF: 0 sumatriptan succinate 50 mg Tablet 50 mg PO DAILY PRN (Reason: Migraine Headache) RF: 0 omeprazole 20 mg Capsule,Delayed Release(Dr/Ec) 20 mg PO BID RF: 0 hydrochlorothiazide 25 mg Tablet 25 mg PO DAILY RF: 0 norethindrone (contraceptive) 0.35 mg Tablet 0.35 mg PO DAILY RF: 0 fexofenadine [Vielka] 180 mg Tablet 180 mg PO DAILY RF: 0 pantoprazole 40 mg Tablet,Delayed Release (Dr/Ec) 40 mg PO BID RF: 0 buspirone [BuSpar] 10 mg Tablet 10 mg PO BID RF: 0 hydroxyzine HCl 25 mg Tablet 25 mg PO BID PRN (Reason: Anxiety) RF: 0 dextroamphetamine-amphetamine [Adderall XR] 25 mg Capsule,Extended Release 24hr 25 mg PO DAILY RF: 0 fluconazole [Diflucan] 150 mg Tablet 150 mg PO QWEEK RF: 0 Telehealth Telehealth Location of provider rendering services: practice address Location of patient: address on file Patient Identification confirmed using: Name, : Yes Telehealth method: video Patient verbally consented to treatment: Yes Patient verbally consented to billing insurance company: Yes Time spent with patient (mins): 20
--- NOTE | 2020-09-19 14:37 | PC.NURSE ---
I called the client to inquire about suicidal ideation and possible need for crisis assessment. The client reports ongoing ideation without current intent. She explains that she feels physically ill and was at the ER yesterday for shortness of breath. She states that they believe it may be her asthma although they were not positive and performed a COVID test. They sent her home with a different inhaler. She states that her son is staying with his other mother while she is waiting for the test results. She states that she is very tired and will got to bed early tonight. She states that she is safe and will be back at [facility] tomorrow. She agrees that if is she feels suicidal tomorrow we can set up an assessment for her with crisis.
--- NOTE | 2020-09-20 13:45 | P.PNPSP_ITS ---
Subjective Subjective Date of Service: 09/20/20 Reason For Visit: depression Interim History: Patient reporting she was sick over the weekend with asthma exacerbation. Her son has been staying with other parent as a result. Patient appearing less detached, spontaneously smiling.Has been able to focus on herself and this has been helpful. Has been working with [facility] crisis services and has also called to schedule therapy appt as well at [facility]. Medication Compliance: Yes Side effects from medications: No Attending Groups: Yes Review of Systems Psychiatric: Reports anxiety, Reports depression and Reports suicidal ideation (passive thoughts, decreasing in intensity) Mental Status Exam Mental Status Exam Patient Appearance: Well Grooomed and Appropriate Level of Consciousness: Awake and Appropriate Patient Behavior: Passive and Anxious Mood Description: Appropriate and Anxious Affect Description: Appropriate and Anxious Speech Pattern: Clear Hallucinations: None Delusions: Not Present Thought Process: Rumination and Goal Oriented Thought Content: positive for Goal Oriented Depressive Symptoms: Increased Anxiety and Feelings of Guilt Judgement: Good Diagnostics Vital Signs (24Hr): Body Mass Index 40.3 Assessment & Plan Assessment & Plan (1) Major depressive disorder, recurrent severe without psychotic features: Status: Acute Code(s): F33.2 - Major depressive disorder, recurrent severe without psychotic features Assessment and Plan: no change to regimen refill provided for Seroquel Certification I certify that partial hospital treatment is medically necessary due to the symptoms and problems resulting from the patient's mental illness and the failure to treat the patient at the partial hospital level of care would likely result in the patient requiring inpatient psychiatric care which could not be prevented at a less intensive level of care. Greater than 50% of the session was spent on counseling and/or coordination of care Discharge Plan Discharge Attending provider: Richard Lugo Medications: New quetiapine [Seroquel] 25 mg tablet 25 mg PO BEDTIME Qty: 30 RF: 0 Continued quetiapine [Seroquel] 25 mg tablet 50 mg PO BEDTIME MDD take 1-2 tabs at bedtime prn PRN (Reason: insomnia) Qty: 14 RF: 1 No Action cyclobenzaprine 10 mg Tablet 10 mg PO TID PRN (Reason: Muscle Spasm) RF: 0 oxycodone 5 mg Capsule 5 mg PO Q4H PRN (Reason: Pain, Severe) RF: 0 montelukast 10 mg Tablet 10 mg PO DAILY RF: 0 alprazolam 2 mg Tablet See Rx Instructions .ROUTE .COMPLEX PRN (Reason: Anxiety) RF: 0 fluticasone propion-salmeterol [Wixela Inhub] 250-50 mcg/dose Blister With Device 1 inh INHALATION BID RF: 0 sumatriptan succinate 50 mg Tablet 50 mg PO DAILY PRN (Reason: Migraine Headache) RF: 0 omeprazole 20 mg Capsule,Delayed Release(Dr/Ec) 20 mg PO BID RF: 0 hydrochlorothiazide 25 mg Tablet 25 mg PO DAILY RF: 0 norethindrone (contraceptive) 0.35 mg Tablet 0.35 mg PO DAILY RF: 0 fexofenadine [Vielka] 180 mg Tablet 180 mg PO DAILY RF: 0 pantoprazole 40 mg Tablet,Delayed Release (Dr/Ec) 40 mg PO BID RF: 0 buspirone [BuSpar] 10 mg Tablet 10 mg PO BID RF: 0 hydroxyzine HCl 25 mg Tablet 25 mg PO BID PRN (Reason: Anxiety) RF: 0 dextroamphetamine-amphetamine [Adderall XR] 25 mg Capsule,Extended Release 24hr 25 mg PO DAILY RF: 0 fluconazole [Diflucan] 150 mg Tablet 150 mg PO QWEEK RF: 0 Telehealth Telehealth Location of provider rendering services: practice address Location of patient: address on file Patient Identification confirmed using: Name, : Yes Telehealth method: video Patient verbally consented to billing insurance company: Yes Time spent with patient (mins): 20
--- NOTE | 2020-09-27 15:53 | PC.NURSE ---
I called the clients therapist Rachel at [facility] and left VM informing her that client will need an appointment because she will be discharging tomorrow. I have already set up an after care group for the client at [facility] and she will begin next Saturday10/03/20.
--- NOTE | 2020-09-27 16:55 | HO.PHPPROGNO ---
Subjective Subjective Date of Service: 10/01/20 Reason For Visit: depression Interim History: Pt reports she is feeling anxious and overwhelmed Plan to discharge tomorrow Completed intake with DBT group Has appt with medication provider on 10/07/2019 Medication Compliance: Yes Side effects from medications: No Attending Groups: Yes Review of Systems Constitutional: Reports as per [facility] Mental Status Exam Mental Status Exam Patient Appearance: Well Grooomed and Appropriate Level of Consciousness: Awake, Appropriate and Alert Patient Behavior: Appropriate Mood Description: Anxious Affect Description: Anxious Ability to Follow Directions: Excellent Speech Pattern: Clear Hallucinations: None Delusions: Not Present Thought Process: Rumination and Goal Oriented Thought Content: positive for Goal Oriented Depressive Symptoms: Increased Anxiety, Feelings of Worthlessness and Loss of Energy Judgement: Fair Diagnostics Vital Signs (24Hr): Body Mass Index 40.3 Assessment & Plan Assessment & Plan (1) Major depressive disorder, recurrent severe without psychotic features: Status: Acute Code(s): F33.2 - Major depressive disorder, recurrent severe without psychotic features Assessment and Plan: No changes to regimen no refills needed Certification I certify that partial hospital treatment is medically necessary due to the symptoms and problems resulting from the patient's mental illness and the failure to treat the patient at the partial hospital level of care would likely result in the patient requiring inpatient psychiatric care which could not be prevented at a less intensive level of care. Greater than 50% of the session was spent on counseling and/or coordination of care Discharge Plan Discharge Attending provider: Richard Lugo Additional Instructions: The client has an appointment with her new therapist Rachel Gonzales 09/29/20 11:[address] [facility], she will see Roberth Shin for medication review 10/07/20, and will start a group at [facility] 10/03/20 Medications: New quetiapine [Seroquel] 25 mg tablet 25 mg PO BEDTIME Qty: 30 RF: 0 Continued quetiapine [Seroquel] 25 mg tablet 50 mg PO BEDTIME MDD take 1-2 tabs at bedtime prn PRN (Reason: insomnia) Qty: 14 RF: 1 No Action cyclobenzaprine 10 mg Tablet 10 mg PO TID PRN (Reason: Muscle Spasm) RF: 0 oxycodone 5 mg Capsule 5 mg PO Q4H PRN (Reason: Pain, Severe) RF: 0 montelukast 10 mg Tablet 10 mg PO DAILY RF: 0 alprazolam 2 mg Tablet See Rx Instructions .ROUTE .COMPLEX PRN (Reason: Anxiety) RF: 0 fluticasone propion-salmeterol [Wixela Inhub] 250-50 mcg/dose Blister With Device 1 inh INHALATION BID RF: 0 sumatriptan succinate 50 mg Tablet 50 mg PO DAILY PRN (Reason: Migraine Headache) RF: 0 omeprazole 20 mg Capsule,Delayed Release(Dr/Ec) 20 mg PO BID RF: 0 hydrochlorothiazide 25 mg Tablet 25 mg PO DAILY RF: 0 norethindrone (contraceptive) 0.35 mg Tablet 0.35 mg PO DAILY RF: 0 fexofenadine [Vielka] 180 mg Tablet 180 mg PO DAILY RF: 0 pantoprazole 40 mg Tablet,Delayed Release (Dr/Ec) 40 mg PO BID RF: 0 buspirone [BuSpar] 10 mg Tablet 10 mg PO BID RF: 0 hydroxyzine HCl 25 mg Tablet 25 mg PO BID PRN (Reason: Anxiety) RF: 0 dextroamphetamine-amphetamine [Adderall XR] 25 mg Capsule,Extended Release 24hr 25 mg PO DAILY RF: 0 fluconazole [Diflucan] 150 mg Tablet 150 mg PO QWEEK RF: 0 Telehealth Telehealth Location of provider rendering services: practice address Location of patient: address on file Patient Identification confirmed using: Name, : Yes Telehealth method: video Patient verbally consented to treatment: Yes Patient verbally consented to billing insurance company: Yes Time spent with patient (mins): 15
== END 2020-09-28 23:55 | disposition home or self-care (01) ==
LOC: HO.PHPA 08:00
PROVIDERS: Visit Provider Psychiatry & Neurology Psychiatry
DX: F33.2 Major depressive disorder, recurrent severe without psychotic features (principal); G47.00 Insomnia, unspecified; Z79.899 Other long term (current) drug therapy
CPT/HCPCS: 90792; 90853; 99213

== ENCOUNTER 2021-08-25 09:49 | Emergency (ER) | payer MEDICAID, SELFPAY ==
--- NOTE | ~2021-08-25 | US_ITS ---
EXAMINATION: US VENOUS ULTRASOUND WITH DOPPLER LOWER EXTREMITY, BILATERAL CLINICAL INFORMATION: Increased edema lower extremities. Assess for occult DVT. COMPARISON: Bilateral leg venous ultrasound with Doppler 07/11/2016. TECHNIQUE: Ultrasound of the deep veins is performed from the hip to the calf with compression sonography and color and pulse Doppler assessment. Spectral analysis with color-flow imaging is performed. FINDINGS: RIGHT: There is normal venous compression and respiratory variation and augmented flow. The visualized common femoral vein, superficial femoral vein, profunda femoral vein, popliteal vein, and the trifurcation region shows no evidence of deep venous thrombosis. No popliteal fossa cyst. LEFT: There is normal venous compression and respiratory variation and augmented flow. The visualized common femoral vein, superficial femoral vein, profunda femoral vein, popliteal vein, and the trifurcation region shows no evidence of deep venous thrombosis. No popliteal fossa cyst. US/US venous duplex LE BI IMPRESSION: No DVT demonstrated in the bilateral lower extremity.
[2021-08-25 11:08] VITALS: BP 167/85; PULSE 85; RESP 18; TEMP 36.4; O2SAT 100; BMI 39.1
[2021-08-25 11:39] LABS: MANUAL DIFF FLAG NO
[2021-08-25 11:41] LABS: Basophils Percent Auto 0.3 % (0-2); Eosinophils Absolute Auto 0.2 X10*3/uL (0.0-0.4); Eosinophils Percent Auto 1.4 % (0-4); Hemoglobin 8.6 g/dl (12.0-16.0); Imm Gran Abs Auto 0.06 X10*3/uL (0.00-0.03); Imm Gran Pct Auto 0.6 % (0.0-0.4); Lymphocytes Absolute Auto 2.3 X10*3/uL (1.2-4.9); Lymphocytes Percent Auto 21.9 % (20-40); Mean Corpuscular HGB Conc 28.7 g/dl (31.0-35.0); Mean Corpuscular Hemoglobin 21.1 pg (27.0-33.0); Mean Corpuscular Volume 73.5 fL (80.0-98.0); Mean Platelet Volume 8.6 fL (9.4-12.3); Monocytes Absolute Auto 0.8 X10*3/uL (0.1-1.2); Monocytes Percent Auto 7.5 % (2-11); Neutrophils Absolute Auto 7.3 x10*3/uL (2.0-8.3); Neutrophils Percent Auto 68.3 % (45-73); Platelet Count 294 X10*3/uL (160-400); Red Blood Count 4.08 X10*6/uL (4.20-5.50); Red Cell Distribution Width 17.3 % (11.0-16.0); White Blood Count 10.6 X10*3/uL (4.8-10.8)
[2021-08-25 11:57] LABS: Anion Gap 13 (12-20); Blood Urea Nitrogen 10 mg/dL (9-16); Calcium 9.1 mg/dL (8.4-10.2); Carbon Dioxide 27 mmol/L (22-29); Chloride 104 mmol/L (96-108); Creatinine Clr Calc Pharmacy 118.3; Estimated Glomerular Filt Rate > 60; Glucose Random 109 mg/dL (60-115); Potassium 3.5 mmol/L (3.3-5.1); Sodium 140 mmol/L (135-145)
[2021-08-25 12:21] LABS: Influenza A PCR NEGATIVE (Negative); Influenza B PCR NEGATIVE (Negative); Resp Syncy Virus RNA Qual PCR NEGATIVE (Negative); SARS COV2 PCR INHOUSE NEGATIVE (Negative)
--- NOTE | 2021-08-25 13:47 | ED.GENADULT ---
HPI - General Adult General Chief complaint: General Medical Stated complaint: both legs feet swollen diff breathing Time Seen by Provider: 08/25/21 13:47 Source: patient Mode of arrival: ambulatory Limitations: no limitations History of Present Illness HPI narrative: legs are swollen for 1 week. Patient has been on hydrochlorothiazide for years, never had this problem before. Patient did not have COVID. patient has been passing blood in the stool for weeks. Patient had been on prednisone which stopped 4 days ago. Onset (ago): week(s) Severity: moderate Quality: burning Pain Consistency: constant Associated symptoms: denies other symptoms Related Data Home Medications Medication Instructions Recorded Confirmed alprazolam 2 mg tablet See Rx Instructions .ROUTE 07/26/20 08/12/20 .COMPLEX PRN cyclobenzaprine 10 mg tablet 10 mg PO TID PRN 07/26/20 08/12/20 fluticasone 250 mcg-salmeterol 50 1 inh INHALATION BID 07/26/20 08/12/20 mcg/dose blistr powdr for inhalation (Wixela Inhub) hydrochlorothiazide 25 mg tablet 25 mg PO DAILY 07/26/20 08/12/20 montelukast 10 mg tablet 10 mg PO DAILY 07/26/20 08/12/20 norethindrone (contraceptive) 0.35 0.35 mg PO DAILY 07/26/20 08/12/20 mg tablet omeprazole 20 mg capsule,delayed 20 mg PO BID 07/26/20 08/12/20 release oxycodone 5 mg capsule 5 mg PO Q4H PRN 07/26/20 08/12/20 sumatriptan succinate 50 mg tablet 50 mg PO DAILY PRN 07/26/20 08/12/20 buspirone 10 mg tablet 10 mg PO BID 08/12/20 08/12/20 dextroamphetamine-amphetamine ER 25 mg PO DAILY 08/12/20 08/12/20 25 mg 24hr capsule,extend release (Adderall XR) fexofenadine 180 mg tablet 180 mg PO DAILY 08/12/20 08/12/20 fluconazole 150 mg tablet 150 mg PO QWEEK 08/12/20 08/12/20 (Diflucan) hydroxyzine HCl 25 mg tablet 25 mg PO BID PRN 08/12/20 08/12/20 pantoprazole 40 mg tablet,delayed 40 mg PO BID 08/12/20 08/12/20 release Previous Rx's Medication Instructions Recorded quetiapine 25 mg tablet (Seroquel) 50 mg PO BEDTIME PRN #14 tab MDD 08/30/20 take 1-2 tabs at bedtime prn quetiapine 25 mg tablet (Seroquel) 25 mg PO BEDTIME #30 tab 09/20/20 hydrochlorothiazide 50 mg tablet 50 mg PO DAILY #20 tab 08/25/21 Allergies Allergy/AdvReac Type Severity Reaction Status Date / Time acetaminophen [From Vicodin] Allergy Intermediate rash Verified 08/25/21 14:21 hydrocodone [From Vicodin] Allergy Intermediate rash Verified 08/25/21 14:21 amoxicillin [AMOXICILLIN] Allergy Mild Difficulty Unverified 08/25/21 14:21 Breathing latex [LATEX] Allergy Mild RASH Unverified 08/25/21 14:21 Penicillins [PENICILLINS] Allergy Mild RASH Unverified 08/25/21 14:21 amox Allergy Unknown SOB/rash Uncoded 08/25/21 14:21 LATEX Allergy Unknown rash Uncoded 08/25/21 14:21 PCN Allergy Unknown SOB/rash Uncoded 08/25/21 14:21 Review of Systems Constitutional: Constitutional: Reports no additional constitutional complaints Eyes: Eyes: Reports no additional eye complaints ENT: Denies dizziness Cardiovascular: Cardiovascular: Reports no additional cardiovascular complaints Respiratory: Respiratory: Reports as per HPI Gastrointestinal: Gastrointestinal: Reports no additional gastrointestinal complaints Genitourinary: Genitourinary: Reports no additional female genitourinary complaints Musculoskeletal: Musculoskeletal: Reports no additional musculoskeletal complaints Integumentary/Breasts: Skin/Breast: Denies rash Neurologic: Reports system reviewed and no additional complaints, except as documented, Denies dizziness and Denies Sensory deficit (Neuro) Psychiatric: Psychiatric: Denies anxiety PMFSH Past Medical History Medical History Acid reflux Anemia Asthma Colitis Crohn disease Fibromyalgia HTN (hypertension) Major depressive disorder, recurrent severe without psychotic features Surgical History H/O knee surgery History of cholecystectomy LAP-BAND surgery status Previous section Social History Social History Household Members: Children and Other Household Members Other:: Pt's girlfriend at times stays with pt. Alcohol intake: never Patient Tobacco Use Status: Never used Tobacco Use of substances other than those prescribed or required for medical reasons: No Advance Directives: No Advance Directives Information Provided: Yes Patient : No Physical Exam Vital Signs: Vital Signs: Last Vital Signs Temp 97.5 F 08/25/21 14:26 Pulse 82 08/25/21 14:26 Resp 20 08/25/21 14:26 BP 155/77 H 08/25/21 14:26 Pulse Ox 99 08/25/21 14:26 BMI result Body Mass Index 39.1 Const: General: healthy appearing Nutritional Appearance: obese Orientation/consciousness: oriented to person and patient oriented x3 Limitations: no limitations HENMT: Head: Yes normal to inspection Ears: external ears normal General nose exam: Normal external nose present Mouth: Normal oral and palatal mucosa present and oropharynx normal Throat: Yes posterior oropharynx normal Eyes: General: appearance normal, both eyes and all related structures Neck: Other: supple Neck: Yes normal visual inspection Chest: Chest palpation & inspection: normal inspection of the chest Resp: Auscultation: clear to auscultation bilaterally Cardio: Jugular venous distension: no JVD Rate: regular rate Rhythm: regular rhythm Heart sounds: S1 normal heart sound present and S2 normal heart sound present GI: Inspection: Yes normal to inspection Palpation (GI): Soft to palpation, nontender and No hepatosplenomegaly present Auscultation: normal bowel sounds : General: Yes no CVA tenderness Back/Spine/Pelvis: Back: no CVA tenderness Skin: General skin exam: no rashes or lesions noted Neuro: General: oriented to person and patient oriented x3 Cranial nerves: Yes CN's II-XII intact bilaterally Motor exam (neuro): 5/5 motor strength present throughout Sensory Exam: No Sensory deficit (Neuro) Extrem: Other: 3+ edema bilaterally with good pulses Psych: Appearance: grossly normal Medical Decision Making Lab Data Result diagrams: 08/25/21 11:30 08/25/21 11:30 Labs: Lab Results 08/25/21 08/25/21 08/25/21 Range/Units 11:30 11:30 11:30 WBC 10.6 (4.8-10.8) X10*3/uL RBC 4.08 L (4.20-5.50) X10*6/uL Hgb 8.6 L (12.0-16.0) g/dl Hct 30.0 L (37.0-47.0) % MCV 73.5 L (80.0-98.0) fL MCH 21.1 L (27.0-33.0) pg MCHC 28.7 L (31.0-35.0) g/dl RDW 17.3 H (11.0-16.0) % Plt Count 294 (160-400) X10*3/uL MPV 8.6 L (9.4-12.3) fL Immature Gran % (Auto) 0.6 H (0.0-0.4) % Neut % (Auto) 68.3 (45-73) % Lymph % (Auto) 21.9 (20-40) % Bradford % (Auto) 7.5 (2-11) % Eos % (Auto) 1.4 (0-4) % Baso % (Auto) 0.3 (0-2) % Lymph # (Auto) 2.3 (1.2-4.9) X10*3/uL Bradford # (Auto) 0.8 (0.1-1.2) X10*3/uL Eos # (Auto) 0.2 (0.0-0.4) X10*3/uL Baso # (Auto) 0.0 (0.0-0.2) X10*3/uL Abs Immat Gran (auto) 0.06 H (0.00-0.03) X10*3/uL Absolute Neuts (auto) 7.3 (2.0-8.3) x10*3/uL Absolute Nucleated RBC 0.000 (0.0-0.012) X10*3/uL Nucleated RBC % (auto) 0.0 (0.0-0.2) /100WBC Sodium 140 (135-145) mmol/L Potassium 3.5 (3.3-5.1) mmol/L Chloride 104 (96-108) mmol/L Carbon Dioxide 27 (22-29) mmol/L Anion Gap 13 (12-20) BUN 10 (9-16) mg/dL Creatinine 0.78 (0.5-1.4) mg/dL Estim Creat Clear Calc 118.3 Estimated GFR > 60 Random Glucose 109 (60-115) mg/dL Calcium 9.1 (8.4-10.2) mg/dL Total Bilirubin (0.0-1.0) mg/dL Direct Bilirubin (0.0-0.5) mg/dL AST (5-31) U/L ALT (0-31) U/L Alkaline Phosphatase (39-117) U/L Total Protein (6.5-8.0) g/dL Albumin (3.5-5.0) g/dL Influenza Type A (PCR) NEGATIVE (Negative) Influenza Type B (PCR) NEGATIVE (Negative) RSV RNA Qual (PCR) NEGATIVE (Negative) SARS-CoV-2 RNA (RT-PCR) NEGATIVE (Negative) 08/25/21 Range/Units 14:11 WBC (4.8-10.8) X10*3/uL RBC (4.20-5.50) X10*6/uL Hgb (12.0-16.0) g/dl Hct (37.0-47.0) % MCV (80.0-98.0) fL MCH (27.0-33.0) pg MCHC (31.0-35.0) g/dl RDW (11.0-16.0) % Plt Count (160-400) X10*3/uL MPV (9.4-12.3) fL Immature Gran % (Auto) (0.0-0.4) % Neut % (Auto) (45-73) % Lymph % (Auto) (20-40) % Bradford % (Auto) (2-11) % Eos % (Auto) (0-4) % Baso % (Auto) (0-2) % Lymph # (Auto) (1.2-4.9) X10*3/uL Bradford # (Auto) (0.1-1.2) X10*3/uL Eos # (Auto) (0.0-0.4) X10*3/uL Baso # (Auto) (0.0-0.2) X10*3/uL Abs Immat Gran (auto) (0.00-0.03) X10*3/uL Absolute Neuts (auto) (2.0-8.3) x10*3/uL Absolute Nucleated RBC (0.0-0.012) X10*3/uL Nucleated RBC % (auto) (0.0-0.2) /100WBC Sodium (135-145) mmol/L Potassium (3.3-5.1) mmol/L Chloride (96-108) mmol/L Carbon Dioxide (22-29) mmol/L Anion Gap (12-20) BUN (9-16) mg/dL Creatinine (0.5-1.4) mg/dL Estim Creat Clear Calc Estimated GFR Random Glucose (60-115) mg/dL Calcium (8.4-10.2) mg/dL Total Bilirubin 0.4 (0.0-1.0) mg/dL Direct Bilirubin < 0.2 (0.0-0.5) mg/dL AST 16 (5-31) U/L ALT 27 (0-31) U/L Alkaline Phosphatase 34 L (39-117) U/L Total Protein 6.5 (6.5-8.0) g/dL Albumin 3.9 (3.5-5.0) g/dL Influenza Type A (PCR) (Negative) Influenza Type B (PCR) (Negative) RSV RNA Qual (PCR) (Negative) SARS-CoV-2 RNA (RT-PCR) (Negative) Imaging Data bilateral duplex: Radiologist's impression: IMPRESSION: No DVT demonstrated in the bilateral lower extremity. Discharge Plan Discharge Clinical Impression: Leg edema Patient Disposition: Home, Self-Care Instructions: Leg Edema (ED) Prescriptions: New hydrochlorothiazide 50 mg tablet 50 mg PO DAILY Qty: 20 RF: 0 No Action cyclobenzaprine 10 mg Tablet 10 mg PO TID PRN (Reason: Muscle Spasm) RF: 0 oxycodone 5 mg Capsule 5 mg PO Q4H PRN (Reason: Pain, Severe) RF: 0 montelukast 10 mg Tablet 10 mg PO DAILY RF: 0 alprazolam 2 mg Tablet See Rx Instructions .ROUTE .COMPLEX PRN (Reason: Anxiety) RF: 0 fluticasone propion-salmeterol [Wixela Inhub] 250-50 mcg/dose Blister With Device 1 inh INHALATION BID RF: 0 sumatriptan succinate 50 mg Tablet 50 mg PO DAILY PRN (Reason: Migraine Headache) RF: 0 omeprazole 20 mg Capsule,Delayed Release(Dr/Ec) 20 mg PO BID RF: 0 hydrochlorothiazide 25 mg Tablet 25 mg PO DAILY RF: 0 norethindrone (contraceptive) 0.35 mg Tablet 0.35 mg PO DAILY RF: 0 fexofenadine [Vielka] 180 mg Tablet 180 mg PO DAILY RF: 0 pantoprazole 40 mg Tablet,Delayed Release (Dr/Ec) 40 mg PO BID RF: 0 buspirone [BuSpar] 10 mg Tablet 10 mg PO BID RF: 0 hydroxyzine HCl 25 mg Tablet 25 mg PO BID PRN (Reason: Anxiety) RF: 0 dextroamphetamine-amphetamine [Adderall XR] 25 mg Capsule,Extended Release 24hr 25 mg PO DAILY RF: 0 fluconazole [Diflucan] 150 mg Tablet 150 mg PO QWEEK RF: 0 quetiapine [Seroquel] 25 mg tablet 50 mg PO BEDTIME MDD take 1-2 tabs at bedtime prn PRN (Reason: insomnia) Qty: 14 RF: 1 quetiapine [Seroquel] 25 mg tablet 25 mg PO BEDTIME Qty: 30 RF: 0 Referrals: Brenda Sheffield, [employer] [Primary Care Provider] - 1 week
[2021-08-25] MEDS: predniSONE 20 MG TABLET 60 MG PO (14:22)
[2021-08-25 14:26] VITALS: BP 155/77; PULSE 82; RESP 20; TEMP 36.4; O2SAT 99
[2021-08-25 14:32] LABS: Alanine Aminotransferase 27 U/L (0-31); Albumin Level 3.9 g/dL (3.5-5.0); Alkaline Phosphatase 34 U/L (39-117); Aspartate Amino Transferase 16 U/L (5-31); Bilirubin Direct < 0.2 mg/dL (0.0-0.5); Bilirubin Total 0.4 mg/dL (0.0-1.0); Total Protein 6.5 g/dL (6.5-8.0)
== END 2021-08-25 17:26 | disposition home or self-care (01) ==
PROVIDERS: Emergency Provider Emergency Medicine; PCP Nurse Practitioner Adult Health
DX: R60.0 Localized edema (principal); I10 Essential (primary) hypertension; J45.909 Unspecified asthma, uncomplicated; Z20.822 Contact with and (suspected) exposure to COVID-19
CPT/HCPCS: 0241U; 36415; 80048; 80076; 85025; 93970; 99284

== ENCOUNTER 2024-03-05 08:18 | Outpatient (RCR) | payer OTHER, SELFPAY ==
--- NOTE | 2024-03-06 08:04 | HO.PHP ---
PHP Admin, Linnea, informed PHP team that Destiny will not be in attendance to program because she is not feeling well. Destiny reported no safety concerns and let Linnea know that she will be here Saturday.
--- NOTE | 2024-03-09 08:30 | HO.PHP ---
Pt called out from programming today, stated she is not ready to attend at this time, states she will call back when she is ready. Pt did not start at [facility]. Pt will be discharged.
== END 2024-03-05 23:59 | disposition home or self-care (01) ==
LOC: HO.PHPA 08:18
PROVIDERS: Visit Provider Psychiatry & Neurology Psychiatry
DX: F33.2 Major depressive disorder, recurrent severe without psychotic features (principal); F41.1 Generalized anxiety disorder
CPT/HCPCS: 90791